=== PATIENT | male | born 1960 | race Caucasian/White ===

== ENCOUNTER → 2021-03-05 | Outpatient (CLI) | payer OTHER ==
[~2021-03-05] VITALS: Ht 233.7 cm; Wt 72.6 kg
[~2021-03-05] MED LIST: ASA81BEC PO; ASPIR 8181 M1 PO; CHLORDIAZEPOXID25 M1 PO; FOLIC ACID20 MG PO; HYDROCODONE-AP1 EAC6 PO; LISINOPRIL40 MG PO; LOPRESSOR 50 MG50 M1; LOPRESSOR25 PO; MINIPRIN81 MG PO; NORCO 10-325 T1 EACH PO; NORVASC10 MG PO; OMEPRAZOLE 20 M20 M1 PO; OMEPRAZOLE40 MG PO; OSTEO BI-FLEX1 EAC1 PO; PLAVIX 75 MG TA75 M1 PO; PLAVIX 75 MG TA75 MG PO; POTASSIUM99 M1 PO; PREGABALIN75 MG PO; PROBENECID-COL1 EACH PO; SUPER THERAVIT1 EACH PO; TOPROL XL50 MG PO; TRAMADOL 50 MG50 MG PO; ZESTRIL40 MG PO
[2021-03-05 14:43] VITALS: BP 115/72
--- NOTE | 2021-03-05 15:00 | NUR ---
Pain Clinic Assessment: 1. History of Osteoarthritis: Left Upper Extremity spine History of Rheumatoid Arthritis: Not Applicable 2. Height: 6 ft. 20 in. 233.7 cm. Weight: 160.0 lb. oz. 72.576 kg. Patient's BMI: 13.3 3. Vital Signs: BP: 115/72 Pulse: 64 Resp: 14 Temp: 02 Sat: 97 ECG Mon: 4. Pain Intensity: 8 5. Fall Risk: Dizziness: Y Needs help standing or walking: N Fallen in the last 3 months: N Fall risk comments: 6. Patient on Blood Thinner: Clopidogrel Bisulf(Plavix 7. History of Hypertension: Y 8. Opioid Therapy greater than 6 weeks: N Opiate Contract Signed: 9. Risk Assessment Tool Provided: low 10. Functional Assessment Tool: 11. Recreational Drug Use: Never Drug Type: Tobacco Use: Current Every Day Smoker Tobacco Type: Cigarettes Amount or Packs/day: 2 How Many Years: 30 Alcohol Use: Yes Frequency: Weekly Quant: varies 2-6
== END ==
LOC: PAIN 10:56
PROVIDERS: ATTEND Anesthesiology Pain Medicine
DX: M54.12 Radiculopathy, cervical region (principal); I10 Essential (primary) hypertension; F17.200 Nicotine dependence, unspecified, uncomplicated; Z72.89 Other problems related to lifestyle

== ENCOUNTER → 2021-03-22 | Outpatient (CLI) | payer OTHER ==
[~2021-03-22] VITALS: Ht 188 cm; Wt 69.7 kg
[2021-03-22 14:03] VITALS: BP 125/78
--- NOTE | 2021-03-22 14:19 | NUR ---
Pain Clinic Assessment: 1. History of Osteoarthritis: Left Upper Extremity spine History of Rheumatoid Arthritis: Not Applicable 2. Height: 6 ft. 2 in. 188.0 cm. Weight: 153.6 lb. oz. 69.672 kg. Patient's BMI: 19.7 3. Vital Signs: BP: 125/78 Pulse: 60 Resp: 14 Temp: 02 Sat: 100 ECG Mon: 4. Pain Intensity: 7 5. Fall Risk: Dizziness: N Needs help standing or walking: N Fallen in the last 3 months: N Fall risk comments: 6. Patient on Blood Thinner: Clopidogrel Bisulf(Plavix 7. History of Hypertension: Y 8. Opioid Therapy greater than 6 weeks: N Opiate Contract Signed: 9. Risk Assessment Tool Provided: low 10. Functional Assessment Tool: 11. Recreational Drug Use: Never Drug Type: Tobacco Use: Current Every Day Smoker Tobacco Type: Cigarettes Amount or Packs/day: 1 PACK How Many Years: Alcohol Use: Yes Frequency: Weekly Quant: 3-4
== END | disposition home or self-care (01) ==
LOC: PAIN 11:05
PROVIDERS: ATTEND Anesthesiology Pain Medicine
DX: M54.12 Radiculopathy, cervical region (principal); M48.02 Spinal stenosis, cervical region; G89.29 Other chronic pain; I10 Essential (primary) hypertension; M19.90 Unspecified osteoarthritis, unspecified site; F17.210 Nicotine dependence, cigarettes, uncomplicated; Z98.890 Other specified postprocedural states; Z79.899 Other long term (current) drug therapy; Z79.01 Long term (current) use of anticoagulants